=== PATIENT | female | born 1985 | race Caucasian/White ===

== ENCOUNTER 2024-01-11 01:36 | Emergency (ER) | payer BC, SELFPAY ==
[2024-01-11 01:50] VITALS: BP 117/61
[2024-01-11 02:22] VITALS: BP 109/69
[2024-01-11 02:23] VITALS: BP 109/69; BMI 21.8
[2024-01-11] MEDS: NSS 1000 IV (02:57)
[2024-01-11 03:03] LABS: % Basophils 0.5 % (0-2); % Immature Granulocytes 0.4 % (0-0.5); % Lymphocytes 13.6 % (20.5-51.1); % Neutrophils 76.5 % (42.2-75.2); Absolute Basophils 0.1 10^3/uL (0-0.2); Absolute Eosinophils 0.6 10^3/uL (0-0.7); Absolute Immature Granulocytes 0.1 10^3/uL (0-0.05); Absolute Lymphocytes 2.5 10^3/uL (1.2-3.4); Absolute Monocytes 1.1 10^3/uL (0.1-0.6); Absolute Neutrophils 13.9 10^3/uL (1.4-6.5); Mean Corp Hgb Conc. 34.3 g/dL (33.0-37.0); Mean Corpuscular Hgb 32.7 pg (27.0-31.0); Mean Corpuscular Volume 95.4 fL (81.0-99.0); Mean Platelet Volume 8.8 fL (7.4-10.4); Nucleated Red Blood Cells % 0 %; Platelet Count 264 10^3/uL (130-400); Red Blood Cell Count 3.67 10^6/uL (4.20-5.40); White Blood Cell Count 18.1 10^3/uL (4.8-10.8)
[2024-01-11 03:07] VITALS: BP 99/56
[2024-01-11 03:21] LABS: Blood Urea Nitrogen 17 mg/dl (7-17); Calcium 9.2 mg/dl (8.4-10.2); Carbon Dioxide 24 mmol/L (22-30); Chloride 102 mmol/L (98-107); Estimated Creatinine Clearance 106 ml/min; Glucose 108 mg/dl (70-99); Potassium 3.4 mmol/L (3.5-5.1); Sodium 137 mmol/L (135-145); eGFR > 60.00
--- NOTE | 2024-01-11 03:57 | ED.GENMED ---
History of Present Illness
General
Chief Complaint: Vaginal Bleeding
Source: patient
Exam Limitations: none
Time Seen by Provider: 01/11/24 02:22
Nursing documentation reviewed up to this point in time: agreed with
History of Present Illness
History of Present Illness:
This is a 38-year-old woman with history of adrenal insufficiency, history of infertility. 1 para 0 currently approximately 8 weeks , has been following with [facility] with ultrasound 6 weeks ago showing IUP and
pole but then follow-up ultrasound on January 08 showed no pole� demise. She was prescribed mifepristone for which she took her first dose Monday afternoon around 3 PM. She admits to mild cramping yesterday afternoon
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 She admits to brief lightheadedness but no dizziness, no nausea no vomiting, no fever nor chills.
Since arrival to the ED she is now feeling somewhat improved, cramping has markedly lessened and bleeding has lessened as well.
Other than vitamin she is maintained on hydrocortisone tablets and more recently, 1 week ago diagnosed with Lyme's disease with bull's-eye's rash and was started on amoxicillin 1 week ago. Bull's-eye has resolved.
Past History
Past History
ED Past Medical History: Other (Adrenal insufficiency chronically maintained on oral steroids; infertility; Lyme disease diagnosed December 2023 with bull's-eye rash.)
ED Past Surgical History: None
Social History
Tobacco: Non-smoker
Alcohol: None
Personal:
Living: with family
Employment: Employed
Family History
Family History: Other (Noncontributory)
Phy Exam
Physical Exam
Physical Exam:
GENERAL: 38-year-old woman appears her stated age, awake and alert, pleasant, appears in no acute distress.
EYE: anicteric
NECK: Supple, nontender, no meningismus, no significant adenopathy.
ENT: , oral mucosa is moist. No rhinorrhea.
CARDIAC: Regular rate and rhythm. no murmur.
LUNGS: Clear breath sounds bilaterally, no acute respiratory distress, no wheezes/rales/rhonchi
ABDOMEN: Soft, nondistended, mild tenderness suprapubic with deep palpation only, no r/g, no cvat. normoactive BS.
NEUROLOGICAL: Alert and oriented x3, no focal neuro deficits. Gait is steady.
SKIN: Warm and dry, normal color, skin intact. No rash.
MUSCULOSKELETAL: No C/C/E. peripheral pulses are full and equal b/l. No palpable tenderness.
PSYCH: Normal and appropriate interaction.
Course
Orders/Labs/Results
Orders:
Orders
01/11/24 02:24
0.9% Sodium Chloride 1000 ml [Nss] 1,000 ml IV BOLUS
01/11/24 02:34
US 1st Trimester Urgent
Comment:
Reason For Exam: 8 wks preg. incomplete miscarriage
01/11/24 02:43
Type+Screen Urgent
Basic Metabolic Panel Urgent
Complete Blood Count/With Diff Urgent
HCG, Beta Quantitative [Beta HCG Quantitative] Urgent
Is this a screen?: No
01/11/24 03:05
ABO2 Urgent
BBK Wristband Number:
Associate notified that ABO2 has been ordered: [id number]
Date: 01/11/24
Time: 03:01
Sales Contractor ID: [id number]
Abnormal Lab Results
01/11/24
02:43
WBC 18.1 H 10^3/uL
(4.8-10.8)
RBC 3.67 L 10^6/uL
(4.20-5.40)
Hct 35.0 L %
(37.0-47.0)
MCH 32.7 H pg
(27.0-31.0)
Abs Immat Gran (auto) 0.1 H 10^3/uL
(0-0.05)
Absolute Neuts (auto) 13.9 H 10^3/uL
(1.4-6.5)
Absolute Monos (auto) 1.1 H 10^3/uL
(0.1-0.6)
Neutrophils % 76.5 H %
(42.2-75.2)
Lymphocytes % 13.6 L %
(20.5-51.1)
Potassium 3.4 L mmol/L
(3.5-5.1)
Glucose 108 H mg/dl
(70-99)
01/11/24 02:43
01/11/24 02:43
Vital Signs
Initial and Last Documented VS:
Initial Vital Signs
Temp Pulse Resp BP Pulse Ox
97.8 F 60 16 117/61 100
01/11/24 01:50 01/11/24 01:50 01/11/24 01:50 01/11/24 01:50 01/11/24 01:50
Last Documented Vital Signs
Temp Pulse Resp BP Pulse Ox
97.8 F 62 16 99/56 100
01/11/24 01:50 01/11/24 02:23 01/11/24 01:50 01/11/24 03:07 01/11/24 03:30
MDM/Problems Addressed
Differential Diagnosis Includes:
Concern for incomplete miscarriage, acute blood loss anemia.
Patient has had several outpatient ultrasounds with no evidence of ectopic, heterotopic is doubtful.
She does have history of adrenal insufficiency. Concern for adrenal crisis related to stress of miscarriage.
Will check labs, type and Rh, quantitative hCG, initiate IV fluids, consider pain medication if pain worsens and we will plan for pelvic ultrasound assess for retained products.
Chronic conditions affecting care: Other (Adrenal insufficiency)
*Radiology
Radiology exam reviewed: radiology read reviewed (Ultrasound shows no IUP nor gestational sac identified. Endometrial stripe measuring 7.9 mm with no internal flow nor findings to suggest vascular retained products of conception. No adnexal mass.
No free fluid. Ovaries are unremarkable bilaterally.)
*Pulse Oximetry
Patient hypoxic: no
*Medical Cash Poster Interpretation
Rate: normal
Interpretation: normal
Rhythm: sinus
*Critical Care Note
Total Time (30-74mins, 75-104mins- exclusive of procedures): Not Applicable
Update Note
Update Note:
01/11/2024 0515 AM
Patient continues to feel well, only minimal brief pelvic cramping, she passed 1 large clot but since has had very light vaginal bleeding.
Labs show moderately elevated white blood cell count of 18 with normal H&H. Elevated white blood cell count is likely stress induced along with oral steroid supplementation. She states adrenal insufficiency was just recently diagnosed within the
past 4 months while undergoing infertility workup.
She remains hemodynamically stable. Nothing to suggest adrenal crisis/adrenal insufficiency.
hCG is 7400, patient states this was over 10,000 earlier in the week.
Type and Rh is a positive.
Ultrasound shows no IUP, no evidence of retained products of conception. Normal ovaries bilaterally. No adnexal masses nor free fluid.
At this point ultrasound overall exam consistent with completed miscarriage.
Will discharge to home with recommendations for prompt follow-up with her fertility specialist.
Discussed importance of staying well-hydrated. Avoid strenuous activity.
Continue pelvic rest.
Return precautions discussed.
ED Attending Note
-
Portions of this chart may have been created with voice recognition software.� Occasional wrong word or��sound alike� substitutions may have occurred due to the inherent limitations of voice recognition software.
Discharge Plan
Departure
Patient Disposition: Home (Routine Discharge)
Date of Disposition: 01/11/24
Time of Disposition: 05:18
Patient with high blood pressure during this ER visit?: No
Condition: Good
Discharge Problem:
Complete miscarriage
Instructions: Miscarriage (DC)
Referrals:
PRIVATE,PHYSICIAN [Family Provider] - Call in 1-3 days for appt
Interventions
Interventions:
*Risk Screen - Suicide Last Done: 01/11/24 01:54
*General Assessment Last Done: 01/11/24 02:25
*Neglect/Abuse Screening Last Done: 01/11/24 01:54
ED- Fall Risk Assessment Last Done: 01/11/24 02:53
*ED COVID-19 Vaccine History Last Done: 01/11/24 01:54
ED-Female Genitourinary Assessment Last Done: 01/11/24 02:28
Discharge Date and Time
Print Language: [id number]
[2024-01-11 04:00] VITALS: BP 101/61
[2024-01-11 05:24] VITALS: BP 108/64
== END 2024-01-11 05:38 | disposition home or self-care (01) ==
LOC: EMR 01:36
PROVIDERS: EMERGENCY PHYSICIAN Emergency Medicine
DX: O03.4 Incomplete spontaneous abortion without complication (principal); E27.40 Unspecified adrenocortical insufficiency
CPT/HCPCS: 99284; 96360; 76801; 80048; 84702; 85025; 86850; 86900; 86901